=== PATIENT | male | born 1980 | race American Indian/Alaskan Native ===

== ENCOUNTER 2017-02-23 10:46 | Day surgery (SDC) | payer OTHER ==
--- NOTE | 2017-02-23 12:26 | Anesthesia Consultation ---
Anesthesia Consult and Med Hx Date of service: 02/23/17 - Airway Anesthetic Teeth Evaluation: Good ROM Head & Neck: Adequate Mental/Hyoid Distance: Adequate Mallampati Class: Class II Intubation Access Assessment: Probably Good - Pulmonary Exam CTA: Yes - Cardiac Exam Cardiac Exam: RRR - Pre-Operative Health Status ASA Pre-Surgery Classification: ASA2 Proposed Anesthetic Plan: General - Pulmonary Hx Smoking: No Hx Sleep Apnea: No (HENRY PRE SCREEN LOW RISK) - Cardiovascular System Hx Hypertension: No - Endocrine Hx Non-Insulin Dependent Diabetes: No
--- NOTE | 2017-02-23 12:26 | Anesthesia Day of Surgery ---
Anesthesia Day of Surgery - Day of Surgery Patient Examined: Yes Patient H&P Reviewed: Yes Patient is NPO: Yes
[2017-02-23] MEDS ORDERED: DILAUDID IV PRN (12:27)
[2017-02-23] MEDS ORDERED: PERCOCET 5/325 PO PRN (12:27)
[2017-02-23] MEDS ORDERED: MARCAINE 0.25% INFILTRATI ONE ×2 (12:37→16:18)
[2017-02-23] MEDS ORDERED: TRIPLE ANTIBIOTIC TP ONE ×2 (12:38→16:18)
[2017-02-23] MEDS ORDERED: NACL BACTERIOSTATIC INFILTRATI ONE (12:41)
[2017-02-23] MEDS ORDERED: PEPCID PO NR (13:00)
[2017-02-23] MEDS ORDERED: LACTATED RINGERS 1,000 ML IV SCH (13:00)
[2017-02-23] MEDS ORDERED: VERSED IV NR (13:00)
[2017-02-23] MEDS ORDERED: DIPRIVAN 10 MG/ML IV ONE (13:19)
[2017-02-23] MEDS ORDERED: SUBLIMAZE ONE (13:19)
[2017-02-23] MEDS ORDERED: XYLOCAINE MPF 2% ONE (13:19)
[2017-02-23] MEDS ORDERED: ANCEF ONE (14:01)
[2017-02-23] MEDS ORDERED: DECADRON ONE (14:05)
[2017-02-23] MEDS ORDERED: ZOFRAN ONE (14:05)
[2017-02-23] MEDS ORDERED: ROBINUL ONE (14:10)
[2017-02-23] MEDS ORDERED: NACL 0.9% IR ONE (14:56)
--- NOTE | 2017-02-23 16:27 | Short Stay Summary ---
Short Stay Documentation Date of service: 02/23/17 - History H&P: obtained from office - Allergies and Medications Current Medications: Allergies No Known Allergies Allergy (Verified 02/12/17 10:02) Home Medications Medication Instructions Recorded Confirmed Last Taken Type No Known Home Medications [No 02/12/17 02/12/17 Unknown History Reported Home Medications] Active Medications Famotidine (Pepcid) 20 mg PO PREOP NR Stop: 02/23/17 23:59 Last Admin: 02/23/17 12:46 Dose: 20 mg Hydromorphone HCl (Dilaudid) 0.5 mg IV Q10MIN PRN PRN Reason: Pain , Severe (7-10) Stop: 02/23/17 23:59 Lactated Ringer's (Lactated Ringers) 1,000 mls @ 100 mls/hr IV DIRECT RACHEL Last Admin: 02/23/17 12:50 Dose: 100 mls/hr Midazolam HCl (Versed) 2 mg IV PREOP NR Stop: 02/23/17 23:59 Last Admin: 02/23/17 13:03 Dose: 2 mg - Brief post op/procedure progress note Date of procedure: 02/23/17 Pre-op diagnosis: vol vas; balantis Post-op diagnosis: same Procedure: vasectomy, circ Anesthesia: GETA Findings: no dev Surgeon: DASHA NOLEN Estimated blood loss: minimal Pathology: list (foreskin, vas) Specimen disposition: to lab (foreskin, vas) Condition: stable - Hospital course Hospital course: [facility] - Disposition Condition at discharge: Good Disposition: DC-01 TO HOME OR SELFCARE Short Stay Discharge Plan Activity: advance as tolerated Diet: advance as tolerated Follow up with: DASHA NOLEN MD [Staff Physician] - 7 Days
--- NOTE | 2017-02-23 17:42 | Post Anesthesia Evaluation ---
- Post Anesthesia Evaluation Patient Participated: Yes Airway Patent: Yes Stable Respiratory Function: Yes Nausea/Vomiting: No Temp > 96.8F: Yes Pain Manageable: Yes Adequeate Hydration: Yes Anesthesia Complications: No
[2017-02-23 19:44] VITALS: BP 117/73
--- NOTE | 2017-03-02 03:06 | Operative Report ---
PREOPERATIVE DIAGNOSES: 1. Voluntary sterilization. 2. Balanitis. 3. Phimosis. ANESTHESIA: General. SPECIMEN: ____. ESTIMATED BLOOD LOSS: Minimal. COMPLICATIONS: None. FINDINGS: ____ foreskin phimosis, ____ bilateral vas removed. PATHOLOGY: Vas deferens. CLINICAL INDICATIONS: Counseled RCBA, antibiotics, SCDs. ____ circumcision and vasectomy. Understood the risks. Wanted foreskin to be short and counseled with the patient per the patient's desire. Understood the risk of just removing the bad tissue versus more and wanted cosmetic with the removal of some excessive tissue. Counseled on risks, including cosmetic appearance, permanent injury, redundant foreskin, chronic pain, additionally for the vas counseled on chronic pain and failure that it can fail after the procedure and even after the 3 months of checking. He understood clearly that there is failure rate and the recurrence rate and desired to proceed. DESCRIPTION OF PROCEDURE: The patient was transferred to the OR suite in supine position. Anesthesia begun. Prepped and draped in standard fashion. Attention was taken to the scrotum. A transverse incision was made through the hemiscrotum just lateral to the midline on the right side. Next, a clamp was passed. I grasped the left vas away from the blood vessels. This was fully dissected down to the vas. A segment of the vas was cut. The proximal and distal ends were clipped with medium clips and then the proximal and distal ends were each tied with 0 Vicryl. Next, the distal end was brought out, and the overlying adventitious layers were sutured in such a fashion that the distal end would be in a separate compartment. This was then replaced into the left hemiscrotum and then the right vas was pulled up and repeated the identical procedure on the right vas then replaced. The area was cleaned. Two 3-0 chromic sutures were placed. Next, circumcision began. At this point, we identified our position, marked our position and marked the proximal and distal circumferential line trying to go around the tight inflamed tissue as best as possible with approximately 0.5-1 cm in front of the coronal sulcus. Next, vertical incision was made. Next, using electrocautery dissected out ____. Next, the area was irrigated. No active bleeding. Next, we approximated the incision line. The ventral U stitch was placed and secured at 12 o'clock, 3 o'clock and 9 o'clock position. A 3-0 chromic was placed and then clamped. Next, in between these, we placed additional 3-0 chromic in between the 12 and 3 o'clock position, 3-0 chromic and interrupted 4-0 Vicryl. Additionally, this was done in between each quadrant to approximate the tissue. There appeared to be a good positioning. Area was cleaned. At the end of the procedure, nerve block with 0.25% Marcaine placed into the base of the penis. Next, Neosporin placed on the incision line, Vaseline gauze, Vaibhav and Coban. This was placed in such a fashion to leave adequate blood supply. The patient was awakened and transferred to the PACU in good and stable condition. JOB# [id number] ATS/NTS
== END 2017-02-23 18:05 | disposition home or self-care (01) ==
LOC: OR 10:46
PROVIDERS: ATTEND Urology
DX: Z30.2 Encounter for sterilization (principal); N48.1 Balanitis; N47.1 Phimosis; I10 Essential (primary) hypertension; Z98.890 Other specified postprocedural states; Z82.49 Family history of ischemic heart disease and other diseases of the circulatory system; Z83.3 Family history of diabetes mellitus
CPT/HCPCS: 54161; 55250; 88302; 88304; J0690; J1100; J1170; J2250; J2405; J2704; J3010; J7120; A6250